=== PATIENT | male | born 1975 | race Caucasian/White ===

== ENCOUNTER 2021-03-24 20:02 | Emergency (ER) | payer MEDICAID ==
[~2021-03-24] VITALS: Ht 172.7 cm; Wt 83.9 kg
[2021-03-24 20:20] VITALS: BP 157/87
[2021-03-24] MEDS ORDERED: KETOROLAC 60 MG/2 ML VIAL IM ONE (20:40)
--- NOTE | 2021-03-24 21:43 | NUR ---
PT REFUSED MEDICATION. STATES HE DOESNT LIKE NEEDLES. SPOKE TO PT, PT REFUSED MEDICATION.
[2021-03-24] MEDS ORDERED: ACET-8386 PO (22:03)
[2021-03-24] MEDS ORDERED: IBUP-2213 PO (22:03)
--- NOTE | 2021-03-24 22:22 | NUR ---
SPOKE WITH [place] [facility] DISPATCH AND INCIDENT # [id number]
[2021-03-24 22:27] VITALS: BP 148/82
--- NOTE | 2021-03-24 22:27 | NUR ---
Patient discharged with v/s stable. Written and verbal after care instructions given and explained. Patient alert, oriented and verbalized understanding of instructions. Ambulatory with steady gait. All questions addressed prior to discharge. ID band removed. Patient advised to follow up with PMD. Rx of NORCO 5-325MG, IBUPROFEN given. Patient educated on indication of medication including possible reaction and side effects. Opportunity to ask questions provided and answered.
== END 2021-03-24 22:27 | disposition home or self-care (01) ==
LOC: MED 20:02
DX: S02.2XXA Fracture of nasal bones, initial encounter for closed fracture (principal); Y04.2XXA Assault by strike against or bumped into by another person, initial encounter; Y93.89 Activity, other specified; Y92.89 Other specified places as the place of occurrence of the external cause; Y99.8 Other external cause status
CPT/HCPCS: 70450; 70486; 90715; 99284; J1885